=== PATIENT | female | born 1955 | race Caucasian/White ===

== ENCOUNTER 2017-01-07 14:00 | Observation (INO) | payer BC ==
[2017-01-07 14:34] LABS: HEMOGLOBIN 11.3 gm/dl (12.3-15.3); RED BLOOD COUNT 3.61 M/UL (4.00-5.10); WHITE BLOOD COUNT 9.1 K/UL (4.5-11.0)
[2017-01-07 14:49] LABS: BUN/CREATININE RATIO 43 (0-10)
[2017-01-07] MEDS ORDERED: ASPIRIN81 MG PO (21:55)
[2017-01-07] MEDS ORDERED: PROTONIX40 MG PO (21:56)
[2017-01-07] MEDS ORDERED: CALCIUM 500 +1 EACH PO (21:56)
[2017-01-07] MEDS ORDERED: ADVIL LIQUI-GE200 MG PO (21:56)
[2017-01-08 04:53] LABS: RED BLOOD COUNT 3.28 M/UL (4.00-5.10)
[2017-01-08 05:00] LABS: WHITE BLOOD COUNT 5.8 K/UL (4.5-11.0)
[2017-01-08 05:26] LABS: BUN/CREATININE RATIO 38 (0-10)
== END 2017-01-08 14:30 | disposition home or self-care (01) ==
LOC: ER1 14:00 → ZEROF 17:23 → MED SURG 4 17:23
PROVIDERS: Family Medicine; ADMIT Internal Medicine
DX: R41.82 Altered mental status, unspecified (principal); K21.9 Gastro-esophageal reflux disease without esophagitis; M41.9 Scoliosis, unspecified; F17.210 Nicotine dependence, cigarettes, uncomplicated; Z86.73 Personal history of transient ischemic attack (TIA), and cerebral infarction without residual deficits; Z82.3 Family history of stroke; Z82.49 Family history of ischemic heart disease and other diseases of the circulatory system; Z90.89 Acquired absence of other organs; Z98.890 Other specified postprocedural states
CPT/HCPCS: 36415; 70450; 71010; 80048; 80053; 80307; 81001; 82550; 82553; 82595; 82803; 83605; 84484; 85025; 85027; 86140; 86160; 87040; 93005; 94640; 94660; 94664; 96361; 96372; 96374; 99285; G0378; G0480; J1650; J2930; J7030

== ENCOUNTER 2021-06-19 23:37 | Emergency (ER) | payer MEDICARE ==
[~2021-06-19 23:37] MED LIST: ADVIL LIQUI-GE200 MG PO; ASPIRIN81 MG PO; CALCIUM 500 +1 EACH PO; PROTONIX40 MG PO
== END 2021-06-20 00:39 | disposition home or self-care (01) ==
LOC: ER1 23:37
DX: T16.1XXA Foreign body in right ear, initial encounter (principal)
CPT/HCPCS: 69200; 99282

== ENCOUNTER 2022-03-20 10:44 | Emergency (ER) | payer MEDICARE ==
[2022-03-20 13:33] LABS: HEMOGLOBIN 11.2 gm/dl (12.3-15.3); RED BLOOD COUNT 3.66 M/UL (4.00-5.10); WHITE BLOOD COUNT 7.5 K/UL (4.5-11.0)
[2022-03-20 13:51] LABS: BUN/CREATININE RATIO 37 (0-10)
== END 2022-03-20 21:45 | disposition short-term general hospital (02) ==
LOC: ER1 10:44
PROVIDERS: Physician Assistant Medical
DX: S32.402A Unspecified fracture of left acetabulum, initial encounter for closed fracture (principal); S32.592A Other specified fracture of left pubis, initial encounter for closed fracture; S50.02XA Contusion of left elbow, initial encounter; F17.210 Nicotine dependence, cigarettes, uncomplicated; Z86.73 Personal history of transient ischemic attack (TIA), and cerebral infarction without residual deficits; Z88.5 Allergy status to narcotic agent
CPT/HCPCS: 71045; 73502; 80053; 85025; 96374; 96375; 96376; 99285; J2270; J2405; Q9967

== ENCOUNTER → 2022-04-16 | Outpatient (CLI) | payer OTHER | LOC: EXRD 13:43 | DX: M25.512 Pain in left shoulder (principal) | CPT/HCPCS: 73030 ==